=== PATIENT | female | born 1970 | race American Indian/Alaskan Native ===

== ENCOUNTER 2016-11-12 06:55 | Day surgery (SDC) | payer OTHER ==
[2016-11-12] MEDS ORDERED: WATER FOR IRRIG STERILE IR ONE (07:32)
[2016-11-12] MEDS ORDERED: NACL 0.9% 1000 ML 1,000 ML IV SCH (08:00)
--- NOTE | 2016-11-12 09:28 | Anesthesia Consultation ---
Anesthesia Consult and Med Hx Date of service: 11/12/16 - Airway Anesthetic Teeth Evaluation: Good ROM Head & Neck: Adequate Mental/Hyoid Distance: Adequate Mallampati Class: Class II Intubation Access Assessment: Probably Good - Pulmonary Exam CTA: Yes - Cardiac Exam Cardiac Exam: RRR - Pre-Operative Health Status ASA Pre-Surgery Classification: ASA3 Proposed Anesthetic Plan: MAC - Pulmonary Hx Smoking: Yes (QUIT 2 YRS AGO) Hx Sleep Apnea: Yes - Gastrointestinal Hx Gastroesophageal Reflux Disease: Yes - Other Systems Hx Obesity: Yes
--- NOTE | 2016-11-12 09:28 | Anesthesia Day of Surgery ---
Anesthesia Day of Surgery - Day of Surgery Patient Examined: Yes Patient H&P Reviewed: Yes Patient is NPO: Yes
--- NOTE | 2016-11-12 09:40 | Discharge Summary ---
Providers - Providers Date of discharge: 11/12/16 Attending physician: GOPI HOWARD Primary care physician: LAURA JOAQUIN Hospitalization Condition: Stable Disposition: DISCHARGED TO HOME OR SELFCARE Core Measure Documentation - Palliative Care Palliative Care/ Comfort Measures: Not Applicable - Core Measures Any of the following diagnoses?: none Exam - Constitutional Vitals: Temp Pulse Resp BP Pulse Ox 97.5 F L 59 L 19 134/86 100 11/12/16 08:09 11/12/16 08:09 11/12/16 08:09 11/12/16 08:09 11/12/16 08:09 General appearance: Present: no acute distress, well-nourished - EENT Eyes: Present: PERRL ENT: hearing intact, clear oral mucosa - Neck Neck: Present: supple, normal ROM - Respiratory Respiratory effort: normal Respiratory: bilateral: CTA - Cardiovascular Heart Sounds: Present: S1 & S2. Absent: rub, click - Extremities Extremities: pulses symmetrical, No edema Peripheral Pulses: within normal limits - Abdominal General gastrointestinal: Present: soft, non-tender, non-distended, normal bowel sounds - Integumentary Integumentary: Present: clear, warm, dry - Musculoskeletal Musculoskeletal: gait normal, strength equal bilaterally - Psychiatric Psychiatric: appropriate mood/affect, intact judgment & insight - Neurologic Neurologic: CNII-XII intact, moves all extremities Plan Follow up with: LAURA JOAQUIN MD [Primary Care Provider] - 7 Days
[2016-11-12] MEDS ORDERED: DIPRIVAN 10 MG/ML IV ONE (10:27)
[2016-11-12 11:19] VITALS: BP 110/66
--- NOTE | 2016-11-12 12:35 | Post Anesthesia Evaluation ---
- Post Anesthesia Evaluation Patient Participated: Yes Airway Patent: Yes Stable Respiratory Function: Yes Nausea/Vomiting: No Temp > 96.8F: Yes Pain Manageable: Yes Adequeate Hydration: Yes Anesthesia Complications: No Block Receding Appropriately: Not Applicable Patient on Ventilator: No
--- NOTE | 2016-11-12 12:56 | Operative Report ---
ATTENDING SURGEON: Ashutosh White MD CORRECTIONAL COUNSELOR/CASE MANAGER: Maykel Herrera MD PREOPERATIVE DIAGNOSIS: Dyspepsia. POSTOPERATIVE DIAGNOSIS: Hiatal hernia. PROCEDURE PERFORMED: Esophagogastroduodenoscopy. INDICATIONS FOR PROCEDURE: The patient is a 46-year-old female undergoing workup for bariatric surgery. She complains of dyspepsia. After discussing risks and benefits of the procedure, she decided to consent for it. DESCRIPTION OF PROCEDURE: The patient was brought to the endoscopic suite, was placed in the left lateral position. MAC anesthesia was induced by anesthesia team. Time-out was called, and the patient and procedure were correct. So, I proceeded to insert the endoscope into the oropharynx of the patient down to the esophagus, stomach, and duodenum. Then, it was slowly retrieved assessing the mucosa circumferentially. No gross abnormalities were visualized in the first and second portion of the duodenum as well as in the antrum and the body of the stomach. The endoscope was retroflexed visualizing the fundus of the stomach and hiatus. I noted a medium size hiatal hernia. Then, the endoscope was deflected and the stomach gas was reduced. The endoscope was retrieved into the lower esophagus. No abnormalities were visualized in the mucosa of the esophagus and it was retrieved into the oropharynx and mouth. The patient was sent to recovery room with no problems. JOB# [id number] CHRISTA/JENS MARTINEZ
== END 2016-11-12 06:56 | disposition home or self-care (01) ==
LOC: GIO 06:55
PROVIDERS: ATTEND Specialist
DX: K44.9 Diaphragmatic hernia without obstruction or gangrene (principal); K21.9 Gastro-esophageal reflux disease without esophagitis; G47.33 Obstructive sleep apnea (adult) (pediatric); E66.01 Morbid (severe) obesity due to excess calories; Z90.710 Acquired absence of both cervix and uterus; Z98.890 Other specified postprocedural states; Z87.891 Personal history of nicotine dependence; Z83.3 Family history of diabetes mellitus
CPT/HCPCS: 43235; J2704; J7030

== ENCOUNTER 2016-11-26 10:15 | Inpatient (IN) | payer OTHER ==
--- NOTE | 2016-11-07 12:35 | Anesthesia Consultation ---
Anesthesia Consult and Med Hx Date of service: 12/03/16 - Airway Anesthetic Teeth Evaluation: Good, Chipped (top right molar) ROM Head & Neck: Adequate Mental/Hyoid Distance: Adequate Mallampati Class: Class II Intubation Access Assessment: Probably Good - Pulmonary Exam CTA: Yes - Cardiac Exam Cardiac Exam: RRR - Pre-Operative Health Status ASA Pre-Surgery Classification: ASA3 Proposed Anesthetic Plan: General - Pulmonary Hx Smoking: Yes (QUIT 2 YRS AGO) Hx Asthma: No Hx Sleep Apnea: Yes (NOT ON CPAP) - Cardiovascular System Hx Hypertension: No Hx Coronary Artery Disease: No - Central Nervous System Hx Seizures: No CVA: No - Gastrointestinal Hx Gastroesophageal Reflux Disease: Yes - Endocrine Hx Renal Disease: No Hx Insulin Dependent Diabetes: No Hx Non-Insulin Dependent Diabetes: No Hx Hyperthyroidism: No - Other Systems Hx Obesity: Yes (MORBID, BMI 41.3) - Additional Comments Anesthesia Medical History Comments: NAC
[2016-11-07 13:20] LABS: Alanine Aminotransferase 18 units/L (7-56); Albumin 4.2 g/dL (3.9-5); Albumin/Globulin Ratio 1.4 %; Alkaline Phosphatase 87 units/L (35-129); Anion Gap 18 mmol/L; Bilirubin,Total 0.2 mg/dL (0.1-1.2); Blood Urea Nitrogen 8 mg/dL (7-17); Calcium 8.6 mg/dL (8.4-10.2); Carbon Dioxide 24 mmol/L (22-30); Chloride 100.8 mmol/L (98-107); Glucose 131 mg/dL (65-100); Potassium 4.4 mmol/L (3.6-5.0); Sodium 138 mmol/L (137-145); Total Protein 7.2 g/dL (6.3-8.2)
[2016-11-07 15:49] LABS: Basophils % (Auto) 0.9 % (0.0-1.8); Hemoglobin 14.2 gm/dl (10.1-14.3); Mean Corpuscular HGB Conc 32 % (30-34); Mean Corpuscular Hemoglobin 29 pg (28-32); Mean Corpuscular Volume 89 fl (79-97); Platelet Count 266 K/mm3 (140-440); Red Blood Count 4.98 M/mm3 (3.65-5.03); Red Cell Distribution Width 13.8 % (13.2-15.2); White Blood Count 6.7 K/mm3 (4.5-11.0)
--- NOTE | 2016-11-29 11:02 | Admit Criteria Form ---
Admission Criteria Documentation: AMBULATORY SURGERY EXCEPTION CRITERIA Ambulatory Surgery Exception Criteria ( Place 'X' for any and all applicable criteria): Surgery or procedure performed on ambulatory basis may require inpatient stay for[A] ANY ONE of the following(1)(2)(3)(4)(5)(6)(7)(8)(9): [X] I. A preoperative situation, condition, or finding that warrants inpatient stay as indicated by ANY ONE of the following: [] a) Inpatient care needed because of severity of a disease or condition rather than the surgery (eg, severe cardiac or respiratory disease, severe infection) (15) (16 ) (17) (18) [] b) Emergent procedure (eg, angioplasty for acute ischemia)(19) [] c) Complex surgical approach or situation as indicated by ANY ONE of the following(3): [] i) Open approach needed instead of usual endoscopic, transcatheter, or other less invasive procedure [] ii) Difficult approach because of previous operation [] iii) Airway monitoring required after open neck procedures(20)(21) [] iv) Large mass requiring unusually extensive dissection [] v) Additional complicating feature requiring inpatient care (eg, drain management)(22(23): [X] d) Major surgery in a pt with high anesthetic risk as indicated by ANY ONE of the following (2)(3)(5)(7)(8): [X] i) ASA risk class III or higher (severe systemic disease impairing function) [D] [] ii) Advanced age (eg, older than 85 years)(14)(24) [] iii) Symptomatic heart failure(25) [] iv) Symptomatic asthma or COPD(8)(21) [] v) Morbid obesity with hemodynamic or respiratory problems(20)( 21)(26)(27) [] vi) Obstructive sleep apnea(20)(21) [] vii) Former premature infants who are younger than 60 weeks [] viii) High risk for severe postoperative abnormalities (eg, severe postoperative hypocalcemia after parathyroidectomy for severe hyperparathyroidism)(27)( 28) [] ix) Unstable angina(25) [] e) Drug-related risk requiring inpatient stay as indicated by ANY ONE of the following(5)(10)(14)(32)(33) [] i) Procedure requires discontinuing drugs or other therapy (eg , antiarrhythmic medication, antiseizure medication), which necessitates inpatient observation or treatment.(18)(31) [] ii) Major surgery and high risk drug use as indicated by ANY ONE of the following: [] 1) Active abuse of cocaine or similar drug [] 2) Monoamine oxidase inhibitor use [] 3) Other drug identified as posing risk [] f) Inadequate outpatient care situation as indicated by ANY ONE of the following(5)(10)(14)(32)(33) [] i) Patient lives remote from medical facility and procedure has urgent complication potential, and temporary nearby residence cannot be arranged [] ii) Patient will have postprocedure incapacitation and inadequate assistance at home, or alternative level of care cannot be arranged. [] iii) Patient will have long general anesthesia or procedure side effect resolution time, and competent person to stay with patient on first postoperative night at home or alternative level of care cannot be arranged. []iv) Other inadequate outpatient situation that cannot be handled by other means [] II. A perioperative event, condition, or finding that warrants inpatient stay as indicated by ANY ONE of the following (1)(2)(3): [] a) Inadequate physiologic recovery: cardiovascular, respiratory, or hemodynamic status not normal or near preoperative baseline(18) [] b) Hemodynamic instability [] c) Patient not alert with near normal or baseline mental status [] d) Temperature not normal or as expected and not appropriate for outpatient treatment of condition [] e) Ambulatory or appropriate activity level status not yet achieved post procedure [E](34)(35)(36) [] f) Operative site not appropriate (eg, unexpected or excessive drainage or bleeding) [] g) Postoperative effects not resolved or adequately managed (eg, significant pain or vomiting not appropriate for outpatient or next level of care)(10)(12) [] h) Complicating features requiring inpatient care as indicated by ANY ONE of the following(37): [] i) Severe complications of procedure (eg, bowel injury, airway compromise, vascular injury,severe hemorrhage) [] ii) Extensive (eg, dissection far beyond usual scope of procedure ) or prolonged (eg, 120 minutes beyond usual) surgery needed requiring inpatient postoperative care [] iii) Conversion to an open or complex procedure that requires inpatient care (eg, open vs laparoscopic cholecystectomy, abdominal vs vaginal hysterectomy)(38) [] iv) Comorbid condition or test result identified during or post procedure that requires inpatient care (7) [] v) Malignant hyperthermia(30) [] vi) Other complicating feature requiring inpatient care(22)(23) Inpatient stay may be needed until ALL of the following are present (1)(2)(3)(4) (5)(6)(10)(14)(33)(40): []a) Physiologic recovery: cardiovascular, respiratory, and hemodynamic status normal or near preoperative baseline []b) Hemodynamic stability []c) Patient alert, with near normal or baseline mental status []d) Temperature appropriate: patient afebrile or temperature appropriate for outpt treatment of condition []e) Activity level appropriate: ambulatory or appropriate activity level post procedure []f) Operative site appropriate as indicated by ALL of the following: []i) Site dry or with expected drainage []ii) Any blood noted is as expected for procedure. []g) Postoperative effects resolved or managed as indicated by ALL of the following: []i) Pain management appropriate for outpatient (or next level of) care(10) []ii) Minimal nausea and vomiting: if present, successfully treated with oral medication(12) []iii) Headache, dizziness, or drowsiness (if present) are mild. []h) Voiding status acceptable as indicated by ANY ONE of the following: []i) Voiding spontaneously []ii) No voiding but instructions given for follow-up in 6 to 8 hours []iii) Urinary catheter in place, and instructions given for follow-up []i) Complicating features requiring inpatient care manageable at a lower level of care(37) []j) Comorbid conditions manageable at a lower level of care(37) The original [employer] content created by [employer] has been revised. The portions of the content which have been revised are identified through the use of italic text or in bold, and [facility] [employer] has neither reviewed nor approved the modified material. All other unmodified content is copyright [employer]. Please see references footnoted in the original [employer] edition 2016 Admission Criteria Met: Yes
[2016-12-02] MEDS ORDERED: LOVENOX SUB-Q NR (08:00)
[2016-12-02] MEDS ORDERED: ZOFRAN IV PRN (20:08)
[2016-12-03] MEDS ORDERED: TRANSDERM-SCOP TD NR (06:00)
[2016-12-03] MEDS ORDERED: PEPCID IV NR (06:00)
[2016-12-03] MEDS ORDERED: TRANSDERM-SCOP TD SCH (08:00)
[2016-12-03] MEDS ORDERED: ANCEF/STERILE WATER 2 GM/20 ML 2 GM/20 ML SYRINGE IV NR (08:00)
[2016-12-03] MEDS ORDERED: LOVENOX SUB-Q NR (08:00)
[2016-12-03] MEDS ORDERED: FLAGYL 500 MG/100 ML 500 MG/100 ML BAG IV NR (08:00)
[2016-12-03] MEDS ORDERED: DILAUDID IV PRN (10:35)
--- NOTE | 2016-12-03 10:35 | Anesthesia Day of Surgery ---
Anesthesia Day of Surgery - Day of Surgery Patient Examined: Yes Patient H&P Reviewed: Yes Patient is NPO: Yes
[2016-12-03] MEDS: VERSED IV NR ×2 (11:09→13:38)
[2016-12-03] MEDS: LACTATED RINGERS 1,000 ML IV SCH ×2 (11:09→19:18)
[2016-12-03] MEDS ORDERED: DILAUDID ONE (14:05)
[2016-12-03] MEDS ORDERED: DIPRIVAN 10 MG/ML IV ONE (14:05)
[2016-12-03] MEDS ORDERED: VERSED ONE (14:21)
[2016-12-03] MEDS ORDERED: ZEMURON IV ONE (14:21)
[2016-12-03] MEDS ORDERED: QUELICIN ONE (14:21)
[2016-12-03] MEDS ORDERED: XYLOCAINE MPF 2% ONE (14:21)
[2016-12-03] MEDS ORDERED: XYLOCAINE 1% 20 mL INFILTRATI ONE (14:44)
[2016-12-03] MEDS ORDERED: MARCAINE-EPI 0.5%-1:200,000 INFILTRATI ONE (14:44)
[2016-12-03] MEDS ORDERED: NACL 0.9% IR ONE (14:45)
[2016-12-03] MEDS ORDERED: NACL 0.9% 1000 ML 1,000 ML ONE (15:24)
[2016-12-03] MEDS ORDERED: ZOFRAN ONE (15:50)
[2016-12-03] MEDS ORDERED: NEOSTIGMINE ONE (15:55)
[2016-12-03] MEDS ORDERED: ROBINUL ONE (15:55)
[2016-12-03] MEDS ORDERED: TORADOL IV PRN (16:04)
--- NOTE | 2016-12-03 16:15 | Operative Report ---
Operative Report Operative Report: DATE OF PROCEDURE: 12/03/2016 PREOPERATIVE DIAGNOSES: Morbid obesity, hiatal hernia POSTOPERATIVE DIAGNOSES: 1.same as pre-op SURGEON: Ashutosh White M.D. ACIDITY TESTER: Maykel Herrera MD PROCEDURE: 1. laparoscopic sleeve gastrectomy 2. laparoscopic hiatal hernia repair ANESTHESIA: General. ESTIMATED BLOOD LOSS: <5 mL. COMPLICATIONS: None. SPECIMEN: Partial gastrectomy. FINDINGS: 1. hiatal hernia INDICATION FOR PROCEDURE: Patient is a 46-year-old female with a long history of morbid obesity. She has tried multiple efforts at weight loss without nursing home success. She is here today for sleeve gastrectomy. PROCEDURE IN DETAIL: After consent was reviewed, patient was taken back to the operating room, where patient was placed supine on the bed with both arms out. The patient's legs were doubly strapped to the bed. Patient had a foot board in place. Patient had a body warmer placed by anesthesia. Patient was then prepped and draped in normal sterile surgical fashion. After a time-out was called, I made a stab incision in the umbilicus and placed a Veress needle through this incision and insufflated the abdomen to 18 mmHg pressure. I then counted down a handsbreadth below the xiphoid process in the midline and slightly left lateral injected local anesthetic and made about 1.5 cm transverse incision. I then used a 12-mm Optiview trocar to enter into the abdomen. I then placed a 45- degree scope through this port and inspected the abdomen. There was no injury on entry of the abdomen. I then placed two 5-mm ports in the right upper quadrant, one along the anterior axillary line and 1 subxiphoid below the costovertebral angle. I then placed a 15-mm port about a handsbreadth left lateral and inferior to my anterior axillary port. I then placed left upper quadrant port along the anterior axillary line in a similar fashion. I then placed the liver retractor through the subxiphoid port and placed the patient in full reverse Trendelenburg. The right and left crura were skeletonized accentuating a small hiatal hernia. An anterior cruraplasty was perfromed with a figure-of-8 stitch using surgidac suture to reapproximate the crura. I then identified the pylorus and then counted off 6cm from the pylorus. I then used a LigaSure cutting device to enter into the lesser sac. At that point and then I took down the short gastrics all the way up to the left garland. Then I had anesthesia pass down a 36-Kinyarwanda bougie along the lesser curvature of the stomach. I made sure everything else was out of the abdomen except the bougie. I then created my gastric sleeve using a 60-mm [employer] stapler loads with zak-strips. A black load followed by purple loads. The sleeve looked good without any twisting or torsion. I then had anesthesia to remove the bougie. Hemostasis was obtained along the staple line. I then used Tiseel along the entirety of the staple line and some on the liver. I then removed liver grasper and took it off the field. I then removed the stomach through the 15-mm port. I then closed that fascia with a #1 PDS in a [id number] fashion using a King-Matthew. I then desufflated the abdomen and then removed all port sites. I then closed the incisions with 4-0 Monocryl in subcuticular fashion. I then dressed the wounds with Dermabond. Patient tolerated the procedure well and was transferred to recovery room in good and stable condition.
--- NOTE | 2016-12-03 17:02 | Post Anesthesia Evaluation ---
- Post Anesthesia Evaluation Patient Participated: Yes Airway Patent: Yes Stable Respiratory Function: Yes Temp > 96.8F: Yes Pain Manageable: Yes Adequeate Hydration: Yes Anesthesia Complications: No Block Receding Appropriately: Not Applicable
[2016-12-03 18:40] LABS: Basophils % (Auto) 0.4 % (0.0-1.8); Eosinophils % (Auto) 0.1 % (0.0-4.3); Hematocrit 41.8 % (30.3-42.9); Hemoglobin 13.4 gm/dl (10.1-14.3); Mean Corpuscular HGB Conc 32 % (30-34); Mean Corpuscular Hemoglobin 28 pg (28-32); Mean Corpuscular Volume 89 fl (79-97); Platelet Count 289 K/mm3 (140-440); Red Blood Count 4.72 M/mm3 (3.65-5.03); Red Cell Distribution Width 13.3 % (13.2-15.2); White Blood Count 15.7 K/mm3 (4.5-11.0)
[2016-12-03 18:59] LABS: Magnesium 1.8 mg/dL (1.7-2.3); Phosphorous 2.3 mg/dL (2.5-4.5)
[2016-12-03 19:02] LABS: Alanine Aminotransferase 74 units/L (7-56); Albumin 3.5 g/dL (3.9-5); Alkaline Phosphatase 82 units/L (35-129); Anion Gap 22 mmol/L; Bilirubin,Total 0.3 mg/dL (0.1-1.2); Blood Urea Nitrogen 8 mg/dL (7-17); Calcium 8.2 mg/dL (8.4-10.2); Carbon Dioxide 19 mmol/L (22-30); Glucose 177 mg/dL (65-100); Potassium 3.9 mmol/L (3.6-5.0); Sodium 141 mmol/L (137-145); Total Protein 6.9 g/dL (6.3-8.2)
[2016-12-03] MEDS: DILAUDID IV PRN (19:16)
[2016-12-04] MEDS: DILAUDID IV PRN (01:55)
[2016-12-04] MEDS ORDERED: LACTATED RINGERS 1,000 ML IV SCH (08:00)
[2016-12-04] MEDS ORDERED: LOVENOX SUB-Q SCH (10:00)
[2016-12-04 10:30] LABS: Basophils % (Auto) 0.2 % (0.0-1.8); Hematocrit 40.1 % (30.3-42.9); Mean Corpuscular HGB Conc 33 % (30-34); Mean Corpuscular Hemoglobin 29 pg (28-32); Mean Corpuscular Volume 88 fl (79-97); Platelet Count 271 K/mm3 (140-440); Red Blood Count 4.57 M/mm3 (3.65-5.03); Red Cell Distribution Width 13.3 % (13.2-15.2); White Blood Count 11.7 K/mm3 (4.5-11.0)
[2016-12-04 10:45] LABS: Alanine Aminotransferase 55 units/L (7-56); Albumin 3.6 g/dL (3.9-5); Albumin/Globulin Ratio 1.1 %; Alkaline Phosphatase 79 units/L (35-129); BUN/Creatinine Ratio 11.42; Bilirubin,Total 0.3 mg/dL (0.1-1.2); Blood Urea Nitrogen 8 mg/dL (7-17); Calcium 8.7 mg/dL (8.4-10.2); Carbon Dioxide 21 mmol/L (22-30); Glucose 110 mg/dL (65-100)
[2016-12-04 10:46] LABS: Anion Gap 18 mmol/L; Chloride 101.6 mmol/L (98-107); Potassium 3.8 mmol/L (3.6-5.0); Sodium 137 mmol/L (137-145)
--- NOTE | 2016-12-04 12:15 | Discharge Summary ---
Providers - Providers Date of Admission: 12/03/16 09:58 Date of discharge: 12/04/16 Attending physician: GOPI HOWARD Hospitalization Reason for admission: overnight observation Condition: Stable Hospital course: patient admitted for overnight observation after surgery Disposition: DISCHARGED TO HOME OR SELFCARE Core Measure Documentation - Palliative Care Palliative Care/ Comfort Measures: Not Applicable - Core Measures Any of the following diagnoses?: none Exam - Physical Exam Narrative exam: NAD Lungd CTA BL Heart RRR Abd, soft, some TTP around wounds. Wounds c/d/i Neuro AAOx3 - Constitutional Vitals: Temp Pulse Resp BP Pulse Ox 98.9 F 64 20 138/86 96 12/04/16 08:00 12/04/16 08:00 12/04/16 08:00 12/04/16 08:00 12/04/16 10:00 Plan Activity: advance as tolerated Diet: other (bariatric stage 1) Wound: open to air Special Instructions: no heavy lifting Follow up with: JOHANNE MORA [Other] - 7 Days
[2016-12-04 14:36] VITALS: BP 136/89
== END 2016-12-04 15:53 | disposition home or self-care (01) | DRG 327 ==
LOC: 3A 12-03 09:58 → 2B-SURG 12-03 16:56
PROVIDERS: ADMIT Specialist; ATTEND Specialist
PROC: 0DB64Z3 Excision of Stomach, Percutaneous Endoscopic Approach, Vertical (ICD-10-PCS; principal; 2016-12-03)
PROC: 0BQS4ZZ (ICD-10-PCS; 2016-12-03)
PROC: 0BQR4ZZ (ICD-10-PCS; 2016-12-03)
DX: K44.9 Diaphragmatic hernia without obstruction or gangrene (principal); Z68.41 Body mass index [BMI] 40.0-44.9, adult; E66.01 Morbid (severe) obesity due to excess calories; Z88.8 Allergy status to other drugs, medicaments and biological substances; Z90.710 Acquired absence of both cervix and uterus; Z83.3 Family history of diabetes mellitus
CPT/HCPCS: 36415; 80053; 83735; 84100; 85025; 88307; C9250; J0330; J0690; J1170; J1650; J1885; J2250; J2405; J2704; J2710; J7030; J7120

== ENCOUNTER 2019-05-18 06:45 | Day surgery (SDC) | payer OTHER ==
[2019-05-18] MEDS ORDERED: NACL 0.9% 1000 ML 1,000 ML IV SCH (07:00)
--- NOTE | 2019-05-18 11:16 | Anesthesia Day of Surgery ---
Anesthesia Day of Surgery - Day of Surgery Patient Examined: Yes Patient H&P Reviewed: Yes Patient is NPO: Yes
--- NOTE | 2019-05-18 11:17 | Anesthesia Consultation ---
Anesthesia Consult and Med Hx Date of service: 05/18/19 - Airway Anesthetic Teeth Evaluation: Good, Bridges ROM Head & Neck: Adequate Mental/Hyoid Distance: Adequate Mallampati Class: Class II Intubation Access Assessment: Good - Pre-Operative Health Status ASA Pre-Surgery Classification: ASA2 Proposed Anesthetic Plan: MAC - Pulmonary Hx Smoking: Yes (QUIT 2 YRS AGO) Hx Asthma: No Hx Sleep Apnea: Yes - Cardiovascular System Hx Hypertension: No Hx Coronary Artery Disease: No - Central Nervous System Hx Seizures: No CVA: No Hx Back Pain: Yes Hx Psychiatric Problems: No - Gastrointestinal Hx Gastroesophageal Reflux Disease: Yes (S/P gastric sleeve) - Endocrine Hx Renal Disease: No Hx Insulin Dependent Diabetes: No Hx Non-Insulin Dependent Diabetes: No Hx Hyperthyroidism: No - Other Systems Hx Obesity: Yes
[2019-05-18] MEDS ORDERED: DIPRIVAN 10 MG/ML IV ONE (12:21)
[2019-05-18] MEDS ORDERED: XYLOCAINE MPF 2% ONE (12:35)
[2019-05-18] MEDS ORDERED: WATER FOR IRRIG STERILE ONE (12:35)
[2019-05-18] MEDS ORDERED: WATER FOR IRRIG STERILE IR ONE (12:35)
[2019-05-18 16:13] VITALS: BP 123/90
== END 2019-05-18 06:46 | disposition home or self-care (01) ==
LOC: GIO 06:45
PROVIDERS: ATTEND Specialist
DX: K30 Functional dyspepsia (principal); K44.9 Diaphragmatic hernia without obstruction or gangrene; K91.1 Postgastric surgery syndromes; K95.89 Other complications of other bariatric procedure; G47.30 Sleep apnea, unspecified; K21.9 Gastro-esophageal reflux disease without esophagitis; E66.01 Morbid (severe) obesity due to excess calories; Z88.8 Allergy status to other drugs, medicaments and biological substances; Z98.84 Bariatric surgery status; Z68.39 Body mass index [BMI] 39.0-39.9, adult; Z90.710 Acquired absence of both cervix and uterus; Z98.890 Other specified postprocedural states
CPT/HCPCS: 43235; J2704; J7030